=== PATIENT | female | born 1950 | race Hispanic/Latino ===

== ENCOUNTER 2017-06-25 06:32 | Day surgery (SDC) | payer MEDICARE, MEDICAID ==
[2017-06-23 07:56] VITALS: BMI 37.5
[2017-06-25] MEDS ORDERED: Lidocaine 2% Inj (20ml) ONE (07:56)
[2017-06-25] MEDS ORDERED: Midazolam 2 MG/2 ML VIAL ONE (08:29)
--- NOTE | 2017-06-27 12:14 | CARDCATH ---
PROCEDURE DATE: 06/25/2017 PROCEDURES: 1. Left heart catheterization. 2. Coronary angiogram. 3. Radiological supervision and interpretation of coronary angiogram and left ventricular angiogram. REFERRING PHYSICIAN: Dr. Gao. PERFORMING PHYSICIAN: Dr. Kevin Cotton. CLINICAL INDICATIONS: 1. Abnormal stress test. 2. Angina. 3. Hypertension. 4. Diabetes. 5. Hyperlipidemia. 6. Obesity. 7. Chronic pain syndrome. PROCEDURE: After informed consent, the patient was prepped and draped in the usual sterile fashion. A 2% lidocaine was given in the right groin for local anesthesia. Using micropuncture technique, a 6-Surinamese sheath was introduced in the right common femoral artery. JL-4 6-Surinamese diagnostic catheter was engaged in the left main coronary artery. Contrast injected and left coronary angiogram was performed. JR-4 6-Surinamese catheter was engaged in the right coronary artery. Contrast injected and right coronary angiogram was performed. JL-4 catheter was crossed into the left ventricle across the aortic valve. LV angiogram was performed with hand injection. FINDINGS: 1. Left main coronary artery is patent. 2. Proximal, distal LAD and diagonal branches are patent. Mid LAD has a nonobstructive 50% eccentric stenosis. 3. Proximal left circumflex has 30% nonobstructive stenosis. Obtuse marginal branches are patent. 4. Right coronary artery is occluded from proximal to the mid region. This appears to be chronic total occlusion. There are collaterals from the left coronary artery to right coronary artery. 5. LV ejection fraction is approximately 50-55%. Mild inferior wall hypokinesis. EDP is 31. No gradient across the aortic valve. IMPRESSION: 1. Chronic total occlusion of the right coronary artery. There are collaterals seen from the left coronary system. 2. Normal left ventricular systolic function. PLAN: Recommend aggressive medical management including statin, beta-blockers and aspirin. If the patient continues to have chest pain in spite of aggressive medical management, we will consider intervening chronic total occlusion of the right coronary artery. Kevin Cotton MD
== END 2017-06-25 15:00 | disposition home or self-care (01) ==
LOC: C.CATHLAB 06:32
PROVIDERS: ATTEND Internal Medicine Cardiovascular Disease
DX: R94.39 Abnormal result of other cardiovascular function study (principal); R07.89 Other chest pain; I67.2 Cerebral atherosclerosis
CPT/HCPCS: 82948; J1644; J2250; J3010; Q9967